=== PATIENT | male | born 1990 | race Caucasian/White ===

== ENCOUNTER 2024-04-06 09:11 | Outpatient (AMB) | payer OTHER, SELFPAY ==
[2024-04-06 09:20] VITALS: BP 122/80; PULSE 94; TEMP 36.6; O2SAT 98; BMI 35.9
--- NOTE | 2024-04-06 09:20 | AM.OFFWIN_ITS ---
Intake Vital Signs 04/06/24 09:20 Height 5 ft 10 in Weight 250 lb BMI 35.9 BP 122/80 Blood Pressure Location Rt brachial Position Sitting Pulse 94 Pulse Source Pulse Oximeter Temp 97.8 F Temp Source Temporal Artery Scan Pulse Oximetry (%) 98 Intake Visit Reasons: [employer] Back pain Patient Tobacco Use Status: Never used Tobacco Allergies No Known Allergies Allergy (Verified 04/06/24 09:21) Do you need a note to return to daycare/school/sports/work: Yes HPI HPI Comments History of Present Illness Details He preseents to office with back pain Intermittent for years States this one felt nerve and called out from work x 3 days He just rested and tried ibuprofen heat and it goes better Right now it is a 1/10 and worse with movement He said radiates all over his back and neck No radiation into legs No trauma or injury recently PFSH Social History Patient Tobacco Use Status: Never used Tobacco Review of Systems Const Denies chills and Denies fever(s) ENT Denies vertigo and Denies dizziness Card Denies chest pain and Denies dyspnea Resp Denies dyspnea GI Denies abdominal pain Musc Reports back pain, Denies numbness and Denies tingling Skin/Breast Denies wounds Neuro Denies vertigo, Denies dizziness, Denies numbness and Denies tingling Physical Exam Vital Signs: Last Vital Signs Temp 97.8 F 04/06/24 09:20 Pulse 94 04/06/24 09:20 BP 122/80 04/06/24 09:20 Pulse Ox 98 04/06/24 09:20 BMI result Body Mass Index 35.9 General: Non-toxic, NAD. Speaking full sentences. Skin: Warm dry throughout. Respiratory: CTA bilaterally. No wheezes, rales or rhonchi Cardiac: RRR. No murmur MSK: No midline spinal tenderness.Slight tenderness to trapezius muscle without obvious paravertebral muscle tenderness to palpation. Full ROM extremities. Neurology: A/O. No aphasia or facial droop. Gait without abnormality Psych: Good mood and affect Assessment & Plan Assessment & Plan (1) Back pain: Code(s): M54.9 - Dorsalgia, unspecified Qualifiers: Back pain location: back pain in unspecified location Chronicity: acute Back pain laterality: unspecified Qualified Code(s): M54.9 - Dorsalgia, unspecified Plan: Pt seen and evaluated Non-toxic appearing Asking for work note to excuse from 3 shifts that he called out on Pt had no questions or concerns at time of discharge Coding Level of Care Code New Pt Level 3 (83871) Diagnoses Acute back pain, unspecified back location, unspecified back pain laterality M54.9 Back pain location: back pain in unspecified location Chronicity: acute Back pain laterality: unspecified
== END 2024-04-06 09:35 | disposition home or self-care (01) ==
PROVIDERS: Visit Provider Physician Assistant
DX: M54.9 Dorsalgia, unspecified (principal)

== ENCOUNTER → 2024-04-06 09:11 | Outpatient (BNVA) | payer OTHER, SELFPAY | PROVIDERS: Visit Provider Physician Assistant ==

== ENCOUNTER 2024-05-08 14:23 | Outpatient (AMB) | payer OTHER, SELFPAY ==
--- NOTE | 2024-05-08 14:55 | A.OFFPC_ITS ---
Vital Signs 05/08/24 15:02 Height 5 ft 9.25 in Weight 257 lb BMI 37.7 BP 140/82 H Blood Pressure Location Rt brachial Pulse 76 Pulse Source Pulse Oximeter Temp 97.9 F Pulse Oximetry (%) 95 Intake Visit Reasons: New Patient Intake Note: here as a new patient says he has osteoarthitis in neck and spine Allergies No Known Allergies Allergy (Verified 05/08/24 15:32) Medication List - Last Reconciled 05/08/24 by Keeley Arroyo PA-C No Known Home Meds PFSH Social History Patient Tobacco Use Status: Never used Tobacco Physical exam (Primary Care) Vital Signs: Last Vital Signs Temp 97.9 F 05/08/24 15:02 Pulse 76 05/08/24 15:02 BP 140/82 H 05/08/24 15:02 Pulse Ox 95 05/08/24 15:02 Care Plan Goal for BP management: BP 140/82. Patient asymptomatic from this. Patient instructed to recheck his blood pressure 3 times a week and keep a diary. Will discuss at next telehealth visit and possibly start patient on anti-hypertensive medications. BMI result Body Mass Index 37.7 BMI Assessment/Plan discussion: High BMI High, discussed plan: lifestyle, weight reduction, dietary, physical activity and alcohol moderation Tobacco/Smoking Status: Tobacco use Status Patient Tobacco Use Status Never used Tobacco 05/08/24 14:57 Coding Level of Care Code New Pt Level 4 (98247) Complex EM visit Add On G2211 Diagnoses Physical exam Z00.00 Lumbar back pain M54.50 Acute back pain, unspecified back location, unspecified back pain laterality M54.9 Back pain location: back pain in unspecified location Chronicity: acute Back pain laterality: unspecified Chronic sinus complaints R09.89 Osteoarthritis M19.90 Elevated blood pressure reading R03.0 Assessment & Plan Assessment & Plan (1) Physical exam: Code(s): Z00.00 - Encounter for general adult medical examination without abnormal findings Category: Medical Plan: Patient has a normal exam. Will obtain records from [facility] from the patient's prior medical provider. (2) Lumbar back pain: Code(s): M54.50 - Low back pain, unspecified Category: Medical Plan: This is chronic and stable. Will prescribe meloxicam and muscle relaxants. Will continue to monitor. (3) Back pain: Code(s): M54.9 - Dorsalgia, unspecified Category: Medical Qualifiers: Back pain location: back pain in unspecified location Chronicity: acute Back pain laterality: unspecified Qualified Code(s): M54.9 - Dorsalgia, unspecified Plan: This is chronic and stable. Will prescribe meloxicam and muscle relaxants. Will continue to monitor. (4) Chronic sinus complaints: Code(s): R09.89 - Other specified symptoms and signs involving the circulatory and respiratory systems Category: Medical Plan: Patient reports chronic sinus complaints. Currently taking [id number] Zyrtec which provide symptomatic relief. Requesting referral to ENT. Condition is chronic and stable will refer to ENT. Will continue to monitor. (5) Osteoarthritis: Code(s): M19.90 - Unspecified osteoarthritis, unspecified site Category: Medical Plan: This is chronic and stable. Will prescribe meloxicam and muscle relaxants. Will continue to monitor. (6) Elevated blood pressure reading: Code(s): R03.0 - Elevated blood-pressure reading, without diagnosis of hypertension Category: Medical Plan: Patient's blood pressure was noted to be elevated at 1 40/82. He denies any history of prior elevated blood pressure. Patient instructed to keep a diary over the next month and at next telehealth visit will discuss blood pressure readings. Will continue to monitor. Plan Plan - Prescribe meloxicam for anti-inflammatory management, to be taken as needed. - Prescribe Flexerol muscle relaxant) for nocturnal use to manage neck pain. - Refer to an Ear, Nose, and Throat specialist for evaluation of sinus issues. - Order sinus imaging to be completed prior to ENT appointment. - Initiate routine blood work including CBC and metabolic panels to assess overall health status. - BP elevated today. No cardiac related complaints. No prior history of elevated BP. Patient instructed to keep a diary over the next month and we will discuss at next telehealth visit. Orders: Orders Comprehensive Anthony. Panel Fast Today Z00.00 - Encounter for general adult medical examination without abnormal findings Complete Blood Count Auto Diff Today Z00.00 - Encounter for general adult medical examination without abnormal findings Hemoglobin A1c Today Z00.00 - Encounter for general adult medical examination without abnormal findings Lipid Panel Today Z00.00 - Encounter for general adult medical examination without abnormal findings Liver Panel Today Z00.00 - Encounter for general adult medical examination without abnormal findings Magnesium Today Z00.00 - Encounter for general adult medical examination without abnormal findings Vitamin D 25-OH Total Today Z00.00 - Encounter for general adult medical examination without abnormal findings Vitamin B12 and Folate Today Z00.00 - Encounter for general adult medical examination without abnormal findings TSH reflex Free T4 Today Z00.00 - Encounter for general adult medical examination without abnormal findings CT sinus wo IV con Today R03.0 - Elevated blood-pressure reading, without diagnosis of hypertension, R09.89 - Other specified symptoms and signs involving the circulatory and respiratory systems, Z00.00 - Encounter for general adult medical examination without abnormal findings Referrals Ear/Nose/Throat Referral R09.89 - Other specified symptoms and signs involving the circulatory and respiratory systems Medications: New cyclobenzaprine 10 mg PO Q8H 30 tabs 1RF muscle spasm meloxicam 15 mg PO DAILY 30 tabs 1RF Patient Instructions: Patient Instructions - Begin meloxicam as needed for inflammation. - Use Flexerol at night for muscle relaxation, avoiding alcohol and operating machinery. - Complete blood tests while fasting, as instructed. - Attend referred appointment with ENT for sinus issues. - BP elevated today. No cardiac related complaints. No prior history of elevated BP. Patient instructed to keep a diary over the next month and we will discuss at next telehealth visit. - Schedule a telehealth follow-up visit in one month to discuss results. - Seek immediate care if experiencing worsening symptoms or new concerns. Scribe Plan - Not visible on output: History of Present Illness The patient is a 33-year-old male presenting for an initial physical exam. He reports he has a history of osteoarthritis and has chronic neck pain and sinus congestion. The neck pain began following a medical emergency in 2017 at his previous job, which was managed by a diagnosis of osteoarthritis involving the spine and neck. The patient reports that the pain has been persistent and affects the chest, neck, shoulder blades, and is associated with referred pain down the arm and lower back. The condition fluctuates in severity, exacerbated by certain movements such as reaching. Previous interventions include prescribed ibuprofen 800 mg; however, it is no longer in use due to stability issues with finding long-term care providers. The patient expresses a strong disinclination towards surgical options or cortisone injections due to concerns about efficacy and side effects. The current symptoms have not prompted further rheumatological evaluation. Regarding the sinus congestion, the patient reports a longstanding issue characterized by persistent sinus pressure and congestion. Treatment with ovfp-[id number] allergy medications like Zyrtec has provided partial relief, but the symptoms persist, prompting consideration for referral to an ear, nose, and throat specialist for further evaluation. Social History - Not currently using prescription medication but expressed a need for stable [facility] care. - Drinks alcohol occasionally, primarily at holidays, but does not smoke. - Engaged to elza, with plans to bring her to vision care appointments. Review of Systems - Ears, Nose, Throat: Reports sinus pressure and congestion. - Genitourinary: Denies difficulty with urination. - Eyes: Denies issues with night vision, reports regular eye examinations. Physical Exam Appearance: Alert. Oriented X3. No acute distress. Head: Normal external exam. Normocephalic. Atraumatic. Eyes: Pupils are equal, round, and reactive to light. Extraocular movements intact. Conjunctiva and sclera normal. Eyelids normal. Ears: External auditory canal normal. Throat: Pharynx normal. Uvula midline. Moist mucous membranes. Neck: Normal inspection. Neck supple. Full range of motion. No adenopathy. Th yroid Normal. No meningeal signs. No neck mass noted. Patient reports chronic neck pain and occasional swelling. Mild tenderness to the left paracervical musculature. No mid cervical tenderness step-offs or deformities are noted on exam today. Cardiovascular: Normal heart rate and rhythm. Heart sound normal. No murmurs noted. Pulses normal throughout. Respiratory: No respiratory distress. Painless inspiration. Breath sounds normal. No wheezes/rales/rhonchi noted. Chest nontender. No accessory muscle usage noted or decreased air movement noted. Abdomen: Soft and nontender. No distention noted. No organomegaly noted. No visible injury noted. Back: No costovertebral angle tenderness. Full range of motion noted. Skin: Skin warm and dry. Normal skin color. Normal skin turgor. No rashes/lesion s/lacerations noted. Extremities: No lower extremity edema. Extremities exhibit normal range of motion. Extremities nontender. Neuro: Oriented X 3. No motor deficit. No sensory deficit. Reflexes normal. Results - Imaging records from 2017 indicate osteoarthritis; recent imaging not completed. Plan - Prescribe meloxicam for anti-inflammatory management, to be taken as needed. - Prescribe Flexerol muscle relaxant) for nocturnal use to manage neck pain. - Refer to an Ear, Nose, and Throat specialist for evaluation of sinus issues. - Order sinus imaging to be completed prior to ENT appointment. - Initiate routine blood work including CBC and metabolic panels to assess overall health status. - BP elevated today. No cardiac related complaints. No prior history of elevated BP. Patient instructed to keep a diary over the next month and we will discuss at next telehealth visit. Patient was informed and verbally consented to the use of an ambient scribe for clinic note documentation during this visit. Discussion Notes I discussed with the patient the management of chronic neck pain using meloxicam for inflammation and Flexerol for muscle relaxation, emphasizing the medication?s non-narcotic nature. I recommended a referral to ENT for further evaluation of his sinus congestion, possibly necessitating imaging to provide additional diagnostic clarity. We delved into the importance of routine blood tests to monitor health, especially considering the family history of back problems and cancer. I ensured the patient understood the non-invasive nature of prescribed medications and potential side effects. We agreed on a follow-up visit within a month for telehealth to review results, with an in-person follow- up in six months. Patient Instructions - Begin meloxicam as needed for inflammation. - Use Flexerol at night for muscle relaxation, avoiding alcohol and operating machinery. - Complete blood tests while fasting, as instructed. - Attend referred appointment with ENT for sinus issues. - BP elevated today. No cardiac related complaints. No prior history of elevated BP. Patient instructed to keep a diary over the next month and we will discuss at next telehealth visit. - Schedule a telehealth follow-up visit in one month to discuss results. - Seek immediate care if experiencing worsening symptoms or new concerns.
[2024-05-08 15:02] VITALS: BP 140/82; PULSE 76; TEMP 36.6; O2SAT 95; BMI 37.7
== END 2024-05-08 15:29 | disposition home or self-care (01) ==
LOC: HO.HMCSH 14:23
PROVIDERS: PCP Internal Medicine; Visit Provider Physician Assistant Medical
DX: Z00.00 Encounter for general adult medical examination without abnormal findings (principal); M54.50 Low back pain, unspecified; M54.9 Dorsalgia, unspecified; R09.89 Other specified symptoms and signs involving the circulatory and respiratory systems; M19.90 Unspecified osteoarthritis, unspecified site; R03.0 Elevated blood-pressure reading, without diagnosis of hypertension

== ENCOUNTER → 2024-05-08 14:23 | Outpatient (BNVA) | payer OTHER, SELFPAY | PROVIDERS: PCP Internal Medicine; Visit Provider Physician Assistant Medical ==

== ENCOUNTER 2024-05-18 08:47 | Outpatient (REF) | payer OTHER, SELFPAY ==
[2024-05-18 11:58] LABS: MANUAL DIFF FLAG NO
[2024-05-18 12:05] LABS: Basophils Absolute Auto 0.1 X10*3/uL (0.0-0.2); Basophils Percent Auto 0.9 % (0-2); Eosinophils Absolute Auto 0.1 X10*3/uL (0.0-0.4); Eosinophils Percent Auto 1.8 % (0-4); Hematocrit 48.2 % (42.0-52.0); Hemoglobin 17.4 g/dl (14.0-18.0); Imm Gran Abs Auto 0.05 X10*3/uL (0.00-0.03); Imm Gran Pct Auto 0.8 % (0.0-0.4); Lymphocytes Percent Auto 30.6 % (20-40); Mean Corpuscular HGB Conc 36.1 g/dl (31.0-36.0); Mean Corpuscular Hemoglobin 31.5 pg (27.0-33.0); Mean Corpuscular Volume 87.2 fL (80.0-98.0); Mean Platelet Volume 10.2 fL (9.4-12.4); Monocytes Absolute Auto 0.5 X10*3/uL (0.1-1.2); Monocytes Percent Auto 8.3 % (2-11); Neutrophils Absolute Auto 3.8 x10*3/uL (2.0-8.3); Neutrophils Percent Auto 57.6 % (45-73); Platelet Count 306 X10*3/uL (160-400); Red Blood Count 5.53 X10*6/uL (4.60-5.80); Red Cell Distribution Width 12.2 % (11.0-16.0); White Blood Count 6.5 X10*3/uL (4.8-10.8)
[2024-05-18 12:23] LABS: Alanine Aminotransferase 32 U/L (0-40); Albumin Level 4.8 g/dL (3.5-5.0); Alkaline Phosphatase 89 U/L (39-117); Anion Gap 12 (12-20); Aspartate Amino Transferase 27 U/L (5-37); Bilirubin Direct 0.3 mg/dL (0.0-0.5); Bilirubin Total 0.9 mg/dL (0.0-1.0); Blood Urea Nitrogen 17 mg/dL (9-16); Calcium 9.7 mg/dL (8.4-10.2); Carbon Dioxide 27 mmol/L (22-29); Chloride 105 mmol/L (96-108); Cholesterol 161 mg/dL (<200); Estimated Glomerular Filt Rate > 60; Glucose Fasting 90 mg/dL (60-99); HDL Cholesterol 22 mg/dL (>40); LDL Cholesterol Calculated 105 mg/dL (<100); Potassium 3.9 mmol/L (3.3-5.1); Sodium 140 mmol/L (135-145); Total Protein 8.3 g/dL (6.5-8.0); Triglycerides 172 mg/dL (<150)
[2024-05-18 12:28] LABS: Estimated Average Glucose 85 mg/dL; Hemoglobin A1C 118.1806 umol/L; Hemoglobin A1c % 4.6 % (<6.0); Total Hemoglobin (HGBA1C) 4449.8622 umol/L
[2024-05-18 12:38] LABS: TSH reflex Free T4 0.38 uIU/mL (0.32-4.0); Vitamin D 25-OH Total 75.1 ng/mL (>30)
[2024-05-18 12:53] LABS: Folate 16.7 ng/mL (> or = 4.0); Vitamin B12 503 pg/mL (200-900)
== END 2024-05-18 08:48 | disposition home or self-care (01) ==
LOC: HO.HMGCLDS 08:47
PROVIDERS: PCP Internal Medicine; Visit Provider Physician Assistant Medical
DX: Z00.00 Encounter for general adult medical examination without abnormal findings (principal); Z13.1 Encounter for screening for diabetes mellitus; Z13.0 Encounter for screening for diseases of the blood and blood-forming organs and certain disorders involving the immune mechanism; Z13.220 Encounter for screening for lipoid disorders; Z13.29 Encounter for screening for other suspected endocrine disorder
CPT/HCPCS: 36415; 80053; 80061; 80076; 82248; 82306; 82607; 82746; 83036; 83735; 84443; 85025

== ENCOUNTER 2024-06-10 13:15 | Outpatient (AMB) | payer OTHER, SELFPAY ==
--- NOTE | 2024-06-10 13:16 | A.OFFPC_ITS ---
Vital Signs 06/10/24 13:19 Height 5 ft 9.25 in Weight 248 lb BMI 36.4 BP 135/82 Blood Pressure Location Lt brachial Intake Visit Reasons: 1 month follow up Intake Note: no other issues Allergies No Known Allergies Allergy (Verified 06/10/24 13:24) Medication List - Last Reconciled 06/10/24 by Keeley Arroyo PA-C meloxicam 15 mg PO DAILY PFSH Medical History (Updated 06/10/24 @ 13:29 by Keeley Arroyo PA-C) Hyperlipidemia Hypertriglyceridemia Follow-up exam Elevated blood pressure reading Lumbar back pain Chronic sinus complaints Osteoarthritis Social History Patient Tobacco Use Status: Never used Tobacco Physical exam (Primary Care) Vital Signs: Last Vital Signs BP 135/82 06/10/24 13:19 BMI result Body Mass Index 36.4 Tobacco/Smoking Status: Tobacco use Status Patient Tobacco Use Status Never used Tobacco 06/10/24 13:20 Coding Level of Care Code Tele Est Pt Level 3 (29972) Complex EM visit Add On G2211 Diagnoses Follow-up exam Z09 Osteoarthritis M19.90 Lumbar back pain M54.50 Chronic sinus complaints R09.89 Elevated blood pressure reading R03.0 Hypertriglyceridemia E78.1 Hyperlipidemia E78.5 Assessment & Plan Assessment & Plan (1) Follow-up exam: Code(s): Z09 - Encounter for follow-up examination after completed treatment for conditions other than malignant neoplasm Category: Medical (2) Osteoarthritis: Code(s): M19.90 - Unspecified osteoarthritis, unspecified site Category: Medical Plan: Patient utilizing meloxicam reports improvement in symptoms. Condition is chronic and stable continue to monitor. (3) Lumbar back pain: Code(s): M54.50 - Low back pain, unspecified Category: Medical Plan: Patient utilizing meloxicam reports improvement in symptoms. Condition is chronic and stable continue to monitor. (4) Chronic sinus complaints: Code(s): R09.89 - Other specified symptoms and signs involving the circulatory and respiratory systems Category: Medical Plan: Patient has ENT referral in place. Has a CT scan of facial bones in place scheduled for next Monday at 07:45. Condition is chronic and stable continue to monitor (5) Elevated blood pressure reading: Code(s): R03.0 - Elevated blood-pressure reading, without diagnosis of hypertension Category: Medical Plan: Patient's blood pressure was elevated at last visit he has been taking his blood pressure at home every other day and his blood pressure has been in the 130s over 80s. Today is at 135/82. Will continue to monitor. (6) Hypertriglyceridemia: Code(s): E78.1 - Pure hyperglyceridemia Category: Medical Plan: Patient had LDL of 105. Cholesterol is less than 200 at 161. HDL 22. Triglycerides 172. Patient will improve his diet and exercise regimen and will reassess at next visit. Condition is chronic and stable continue to monitor. (7) Hyperlipidemia: Code(s): E78.5 - Hyperlipidemia, unspecified Category: Medical Plan: Patient had LDL of 105. Cholesterol is less than 200 at 161. HDL 22. Triglycerides 172. Patient will improve his diet and exercise regimen and will reassess at next visit. Condition is chronic and stable continue to monitor. Plan Plan - Continue lifestyle modifications, including dietary improvements to manage elevated triglycerides and LDL cholesterol levels. - Maintain current Meloxicam regimen for musculoskeletal pain management, avoid muscle relaxants due to sedative side effects. - Monitor blood pressure every other day or at least once a week; maintain records to review during next visit. - Await results of impending CT scan of sinuses and follow up with ENT appointment once scheduled. Patient Instructions: Patient Instructions - Continue current dietary changes and increase physical activity to further manage lipid levels. - Take Meloxicam as prescribed for pain relief and avoid muscle relaxants unless otherwise instructed. - Record blood pressure readings every other day or at least weekly, and bring this log to your next appointment. - Attend scheduled CT scan appointment and follow up with ENT once contacted. - Report any new symptoms or concerns to the clinic promptly. Scribe Plan - Not visible on output: History of Present Illness The patient is a 33-year-old male presenting with management of hyperlipidemia and musculoskeletal pain. The patient has a history of elevated triglycerides with a recent value of 172 mg/dL, which is above the desired level of less than 150 mg/dL. He is also noted to have elevated low-density lipoprotein (LDL) cholesterol at 105 mg/dL, slightly above the target of less than 100 mg/dL. Previously, lifestyle modifications including improved diet and exercise have been initiated. No medications for lipid management have been started due to the nearing of target levels. The patient is also experiencing ongoing musculoskeletal pain managed with Meloxicam, which has demonstrated efficacy. He has elected not to use muscle relaxers due to sedation risk. Previous blood pres sure readings have improved to 135 mmHg, controlled through lifestyle adherence, without pharmaceutical intervention. Social History - The patient has been advised to exercise at home due to cost and access issues with local gyms. - Improved dietary habits have been reported with a focus on reducing sugary food intake. Review of Systems - Cardiovascular: Denies recent hypertension outside the controlled range. - Musculoskeletal: Reports improvement in pain management with current medication. - General: Denies fatigue as a side effect from current medications. Results - Labs: Triglycerides at 172 mg/dL, LDL cholesterol at 105 mg/dL; Vitamin B12, Vitamin D, folate, and thyroid levels are within normal limits. - Imaging: Scheduled for CT imaging of sinuses next Monday, with a follow-up p lanned with ENT. Plan - Continue lifestyle modifications, including dietary improvements to manage elevated triglycerides and LDL cholesterol levels. - Maintain current Meloxicam regimen for musculoskeletal pain management, avoid muscle relaxants due to sedative side effects. - Monitor blood pressure every other day or at least once a week; maintain records to review during next visit. - Await results of impending CT scan of sinuses and follow up with ENT appointment once scheduled. Patient was informed and verbally consented to the use of an ambient scribe for clinic note documentation during this visit. Discussion Notes I have discussed with the patient the ongoing management of his hyperlipidemia and musculoskeletal pain. Emphasis has been placed on lifestyle modifications, including maintaining a healthy diet and regular home-based exercise due to the effectiveness thus far. The fact that the patient's blood pressure readings remain within acceptable limits without the need for pharmacotherapy was reassuring. We agreed to continue monitoring his blood pressure regularly. I advised the patient to maintain a log of these readings. For musculoskeletal pain, Meloxicam has proven effective, and the risk of sedation with muscle relaxers was reiterated as a padilla reason to avoid them. The upcoming CT scan of the sinuses was covered, and I reassured the patient of timely follow-up from ENT. Patient Instructions - Continue current dietary changes and increase physical activity to further manage lipid levels. - Take Meloxicam as prescribed for pain relief and avoid muscle relaxants unless otherwise instructed. - Record blood pressure readings every other day or at least weekly, and bring this log to your next appointment. - Attend scheduled CT scan appointment and follow up with ENT once contacted. - Report any new symptoms or concerns to the clinic promptly.
--- OUTSIDE RECORDS SUMMARY | 2024-06-10 13:18 | XMS_ITS ---
Author Organization Paul Petersen DO, FACP Address [address], [place] [id number] Care Team Providers Care Doors Prefitter Name Role Phone Paul Petersen Primary Care Provider Encounters Encounter Location Date Provider Diagnosis LAKEISHA Yates DO[address] [id number] 05/08/2024 Paul Petersen PLAN OF TREATMENT No Information
--- OUTSIDE RECORDS SUMMARY | 2024-06-10 13:18 | XMS_ITS ---
Author Organization Paul Petersen DO, FACP Address [address] [place], [place] [id number] Care Team Providers Care Integration Software Engineer Name Role Phone Paul Petersen Primary Care Provider [phone] REASON FOR VISIT Message Encounters Encounter Location Date Provider Diagnosis Paul Petersen DO, FACP [address] [place] [id number] 04/03/2024 Paul Petersen PLAN OF TREATMENT No Information
--- OUTSIDE RECORDS SUMMARY | 2024-06-10 13:18 | XMS_ITS | Patient Health Record ---
Author Organization Paul Petersen DO, [facility] Address [address] [place], [place] [id number] Care Team Providers Care Heading Repairer Name Role Phone Paul Petersen Primary Care Provider [phone] REASON FOR REFERRAL No Information Encounters Encounter Location Date Provider Diagnosis Paul Petersen DO, [facility] [address] [place], [place] [id number] 05/08/2024 Paul Petersen DO, [facility] [address] [place], [place] [id number] 04/03/2024 Paul Petersen PLAN OF TREATMENT No Information Insurance Providers Payer Name Payer Address Payer Phone Subscriber Number Group Number Insured Name Patient Relationship to Insured Coverage Start Date Coverage End Date [facility] [address] [place] [phone] [id number] Tierra Mccollum Self - patient is the insured
[2024-06-10 13:19] VITALS: BP 135/82; BMI 36.4
== END 2024-06-10 13:25 | disposition home or self-care (01) ==
LOC: HO.HMCSH 13:16
PROVIDERS: PCP Internal Medicine; Visit Provider Physician Assistant Medical
DX: M54.50 Low back pain, unspecified (principal); Z09 Encounter for follow-up examination after completed treatment for conditions other than malignant neoplasm; M19.90 Unspecified osteoarthritis, unspecified site; R09.89 Other specified symptoms and signs involving the circulatory and respiratory systems; R03.0 Elevated blood-pressure reading, without diagnosis of hypertension; E78.1 Pure hyperglyceridemia; E78.5 Hyperlipidemia, unspecified

== ENCOUNTER → 2024-06-10 13:15 | Outpatient (BNVA) | payer OTHER, SELFPAY | PROVIDERS: PCP Internal Medicine; Visit Provider Physician Assistant Medical ==

== ENCOUNTER 2024-06-17 07:35 | Outpatient (REF) | payer OTHER, SELFPAY ==
--- NOTE | ~2024-06-17 | CT_ITS ---
CLINICAL HISTORY: R03.0 - Elevated blood-pressure reading, without diagnosis of hypertension CT sinuses without contrast Comparison: None Findings: Small retention cysts noted within the right maxillary sinus. Mild mucoperiosteal thickening present. The ostiomeatal units are patent. Ethmoid air cells are clear. Sphenoid and frontal sinuses are clear.. The nasal airways are patent. No nasal polyps or masses. The orbits are normal. No acute fractures. IMPRESSION: Mild maxillary sinus disease. No acute process. This document has been electronically signed by: Chris Brewster MD on 06/17/2024 10:41:45
--- OUTSIDE RECORDS SUMMARY | 2024-06-17 07:37 | XMS_ITS ---
Author Organization Paul Petersen DO, FACP Address [address] [place], [place] [phone] Care Team Providers Care Ends Breakage Clerk Name Role Phone Paul Petersen Primary Care Provider Encounters Encounter Location Date Provider Diagnosis LAKEISHA Yates DO[address] [id number] 05/08/2024 Paul Petersen PLAN OF TREATMENT No Information
--- OUTSIDE RECORDS SUMMARY | 2024-06-17 07:37 | XMS_ITS | Encounter Summary ---
Author Organization [facility] Address [address] [place] [address] Care Team Providers Care Lounge Car Attendant Name Role Phone Bassem Ward MD Primary Care Provider [phone] Reason for Visit * Reason Onset Date Comments Note, Other 06/23/2022 Encounter Details Date Type Department Care Team Description 06/23/2022 Telephone Adult Medicine [address] [id number] Bassem Ward MD [address] [place] [address] [id number] Note, Other Social History Tobacco Use Types Packs/Day Years Used Date Smoking Tobacco: Former Cigarettes Q uit: 01/02/2012 Smokeless Tobacco: Never Comments:1 cigarette a day f or a year in past Alcohol Use Standard Drinks/Week Comments Yes 0 (1 standard drink = 0.6 oz pur e alcohol) 1 drink/day, not daily Sex Assigned at Date Recorded Not on file documented as of this encounter Miscellaneous Notes * Telephone Encounter - Maryan Ludwig M.A. - 06/23/2022 3:50 PM EST Pt has nor been seen since 2020 * Telephone Encounter - Bel Bueno - 06/23/2022 3:46 PM EST Patient has not been seen for this issue, will need to ask at visit when seen Msg to patient to make aware -noted another message regarding is in place (to be scheduled) * Telephone Encounter - Maite Crawford - 06/23/2022 2:04 PM EST Work note is for: Return to Work Note Has patient been seen for the reason they were absent from work? No For what medical reason was/is patient out of work?: arthritis on spine If Yes, by whom?: Date patient seen: What dates does the patient need the note to cover: Beginning date: 06/24/2022 End Date: until further notice If note for return to work, what is return date: 06/24/2022 If note is to return to work, are there restrictions? Yes If yes, list: If any flare ups happen patient is able to sit down for half an hour until okay Patient would like note to be: Placed in patient sisal picker documented in this encounter Plan of Treatment Not on file documented as of this encounter Visit Diagnoses Not on filedocumented in this encounter Care Teams Lounge Car Attendant Relationship Specialty Start Date End Date Bassem Ward MD [address] [place] [id number] PCP - General Internal Medicine 12/09/19 documented as of this encounter
--- OUTSIDE RECORDS SUMMARY | 2024-06-17 07:37 | XMS_ITS | Encounter Summary ---
Author Organization [facility] Address [address] [place] [address] Care Team Providers Care Endocrinology Nurse Name Role Phone Momo Rivera MD Primary Care Provider [phone] Bassem Ward MD Primary Care Provider [phone] Reason for Visit * Reason Onset Date Comments TEST RESULTS 07/28/2016 xray Encounter Details Date Type Department Care Team Description 07/28/2016 Telephone Adult Medicine - [place] [address] [place] [address] Momo Rivera MD [address] [place], [place] [id number] TEST RESULTS (xray) Social History Tobacco Use Types Packs/Day Years Used Date Smoking Tobacco: Never Alcohol Use Standard Drinks/Week Comments Yes 0 (1 standard drink = 0.6 oz pur e alcohol) occ Sex Assigned at Date Recorded Not on file documented as of this encounter Miscellaneous Notes * Telephone Encounter - Madelin Kincaid - 07/28/2016 2:54 PM EDT Spoke with patient and advised * Telephone Encounter - Lyubov Zapata PA-C - 07/28/2016 1:05 PM EDT Please let him know that the xray showed extra bone growth in his neck on the left side which mightbe causing this. We will continue with the plan as we discussed. * Telephone Encounter - Madelin Codi - 07/28/2016 11:30 AM EDT Please review and advise. Thank you * Telephone Encounter - Sylwia Germanon - 07/28/2016 11:09 AM EDT Inform patient: ANY URGENT OR ABNORMAL RESULTS WIILL RESULT IN A CALL BACK TO THE PATIENT ZAHIRA. Type of test: :xray Date test was performed: Aurelia ABBOTT Where was the test performed: 07/27/2015 Who ordered this test?: Lyubov Zapata Is the doctor here today?: YES Can the message wait until the doctor returns?: YEs IF PATIENT'S PCP IS NOT IN INSTRUCT PATIENT THAT THEY WILL RECEIVE A CALL BACK WHEN THE PCP IS IN THE OFFICE NEXT. documented in this encounter Plan of Treatment Not on file documented as of this encounter Visit Diagnoses Not on filedocumented in this encounter Care Teams Endocrinology Nurse Relationship Specialty Start Date End Date Momo Rivera MD [address] [place] [address] PCP - General Internal Medicine 12/17/15 12/08/19 Bassem Ward MD [address] [place] [id number] PCP - General Internal Medicine 12/09/19 documented as of this encounter
--- OUTSIDE RECORDS SUMMARY | 2024-06-17 07:37 | XMS_ITS | Encounter Summary ---
Author Organization [facility] Address [address] [place] [address] Care Team Providers Care Cognos Administrator Name Role Phone Braydon Rodrigues MD Primary Care Provider [facility] Momo Bah MD Primary Care Provider [phone] Bassem Ward MD Primary Care Provider [phone] Encounter Details Date Type Department Care Team Description 01/06/2012 Release of Information Medical Records [address] [place] [id number] Abstract, Provider Social History Tobacco Use Types Packs/Day Years Used Date Smoking Tobacco: Never Alcohol Use Standard Drinks/Week Comments Not Asked 0 (1 standard drink = 0.6 oz pur e alcohol) Sex Assigned at Date Recorded Not on file documented as of this encounter Plan of Treatment Not on file documented as of this encounter Visit Diagnoses Not on filedocumented in this encounter Care Teams Cognos Administrator Relationship Specialty Start Date End Date Braydon Rodrigues MD PCP - General Internal Medicine 01/05/12 04/23/14 Momo Rivera MD [address] [place] [address] PCP - General Internal Medicine 12/17/15 12/08/19 Bassem Ward MD [address] [place] [address] [id number] PCP - General Internal Medicine 12/09/19 documented as of this encounter
--- OUTSIDE RECORDS SUMMARY | 2024-06-17 07:37 | XMS_ITS ---
Author Organization Paul Petersen DO, FACP Address [address] [place], [place] [id number] Care Team Providers Care Dry Wall Nailer Name Role Phone Paul Petersen Primary Care Provider REASON FOR VISIT Message Encounters Encounter Location Date Provider Diagnosis Paul Petersen DO, FACP [address] [place] [address] [phone] 04/03/2024 Paul Petersen PLAN OF TREATMENT No Information
== END 2024-06-17 07:36 | disposition home or self-care (01) ==
LOC: HO.CT 07:35
PROVIDERS: PCP Internal Medicine; Visit Provider Physician Assistant Medical
DX: R03.0 Elevated blood-pressure reading, without diagnosis of hypertension (principal); R09.89 Other specified symptoms and signs involving the circulatory and respiratory systems
CPT/HCPCS: 70486

== ENCOUNTER → 2024-06-17 07:37 | Outpatient (BNV) | payer OTHER, SELFPAY | PROVIDERS: PCP Internal Medicine; Visit Provider Radiology Vascular & Interventional Radiology | DX: J34.1 Cyst and mucocele of nose and nasal sinus (principal); R03.0 Elevated blood-pressure reading, without diagnosis of hypertension | CPT/HCPCS: 70486 ==

== ENCOUNTER → 2025-03-06 10:28 | Outpatient (BNVA) | payer OTHER, SELFPAY | PROVIDERS: PCP Physician Assistant Medical; Visit Provider Physician Assistant | DX: S39.012A Strain of muscle, fascia and tendon of lower back, initial encounter (principal); S40.022A Contusion of left upper arm, initial encounter; V83.5XXA Driver of special industrial vehicle injured in nontraffic accident, initial encounter | CPT/HCPCS: 99203 ==

== ENCOUNTER → 2025-03-10 10:15 | Outpatient (BNVA) | payer OTHER, SELFPAY | PROVIDERS: PCP Physician Assistant Medical; Visit Provider Physician Assistant Medical | DX: S30.0XXA Contusion of lower back and pelvis, initial encounter (principal); S70.12XA Contusion of left thigh, initial encounter; V83.5XXA Driver of special industrial vehicle injured in nontraffic accident, initial encounter | CPT/HCPCS: 99213 ==

== ENCOUNTER → 2025-03-12 15:46 | Outpatient (BNVA) | payer OTHER, SELFPAY | PROVIDERS: PCP Physician Assistant Medical; Visit Provider Physician Assistant | DX: S70.12XA Contusion of left thigh, initial encounter (principal); V83.5XXA Driver of special industrial vehicle injured in nontraffic accident, initial encounter | CPT/HCPCS: 99213 ==

== ENCOUNTER → 2025-03-24 11:47 | Outpatient (BNVA) | payer OTHER, SELFPAY | PROVIDERS: PCP Physician Assistant Medical; Visit Provider Internal Medicine | DX: S40.022D Contusion of left upper arm, subsequent encounter (principal); S80.12XD Contusion of left lower leg, subsequent encounter; V83.5XXD Driver of special industrial vehicle injured in nontraffic accident, subsequent encounter | CPT/HCPCS: 99213 ==